=== PATIENT | male | born 1950 | race Caucasian/White ===

== ENCOUNTER 2024-11-15 18:22 | Inpatient (IN) | payer MEDICARE, OTHER, SELFPAY ==
[2024-11-15] VITALS (9 sets, daily range): BP systolic 146–172; BP diastolic 83–115; BMI 28.7; BMI 29.6
[2024-11-15 16:03] LABS: Hematocrit 43.2 % (39.0-52.0); Hemoglobin 14.7 g/dL (13.0-18.0); Mean Corp Hgb Conc. 34.0 g/dL (33.0-37.0); Mean Corpuscular Volume 90.9 fL (80.0-94.0); Nucleated Red Blood Cells % 0 % (-); Platelet Count 169 10^3/uL (130-400); Red Cell Dist. Width 12.8 % (11.5-14.5)
[2024-11-15 16:19] LABS: ALT (SGPT) 24 U/L (0-50); AST (SGOT) 29 U/L (17-59); Albumin 4.8 g/dl (3.5-5.0); Alkaline Phosphatase 47 U/L (38-126); Blood Urea Nitrogen 21 mg/dl (9-20); Calcium 9.6 mg/dl (8.4-10.2); Carbon Dioxide 29 mmol/L (22-30); Chloride 106 mmol/L (98-107); Glucose 97 mg/dl (70-99); Potassium 4.2 mmol/L (3.5-5.1); Sodium 143 mmol/L (135-145); Total Protein 7.8 g/dl (6.3-8.2); eGFR > 60.00
--- NOTE | 2024-11-15 16:39 | ED.GENMED ---
History of Present Illness
General
Chief Complaint: Chest Pain
Source: patient
Exam Limitations: none
Time Seen by Provider: 11/15/24 16:13
History of Present Illness
History of Present Illness:
74-year-old male presents with rapid heartbeat some lightheadedness fatigue weakness. Started earlier today. Noted on his Apple Watch. Also had a relatively recent episode of dizziness. Seen by ENT with the some concern for a stroke. MRIs are
pending. Patient does not feel the rapid heartbeat.
Past History
Past History
ED Past Medical History: HTN, Hypercholesterolemia and Other (Prostatic hypertrophy)
ED Past Surgical History: Orthopedic and Tonsilectomy
Review of Systems
Review of Systems
All Other Systems: Not applicable
Respiratory: Denies trouble breathing
Cardiac: Reports chest pain (Some chest tightness with this)
Phy Exam
Physical Exam
Physical Exam:
GENERAL: Alert and oriented in no apparent distress
EYE: Orbits normal.
NECK: Supple, no thyroid palpable
ENT: Pharynx without erythema
CARDIAC: Tachycardic and regular no murmur
LUNGS: Clear breath sounds,normal
ABDOMEN: Soft, without focal tenderness or distention
NEUROLOGICAL: Alert and oriented , grossly non-focal
SKIN: Warm and dry, no rash or lesion, no discoloration, skin intact.
MUSCULOSKELETAL: No edema,no deformity.Good color
PSYCH: Normal and appropriate interaction.
Scores
Heart Score for Chest Pain Patients
STEMI patient?: Not applicable
Course
Orders/Labs/Results
Orders:
Orders
11/15/24 Breakfast
Cholesterol Lowering
At Your Request: Full Participation
Cholesterol Lowering: Sodium, 2 Gram
11/15/24 15:28
Electrocardiogram (*1) Urgent
Reason for Study: Chest Pain
EKG- Treatment ONCE
11/15/24 15:52
Complete Blood Count/With Diff Urgent
Comprehensive Metabolic Panel Urgent
TSH Reflex To Free T4 Urgent
11/15/24 16:35
CT Head W/o Iv Contrast Urgent
Comment:
Reason For Exam: Recent dizziness/atrial flutter
Cardiac Monitoring- Treatment ONCE
IV Insert/Care/Rem.- Treatment PRN
11/15/24 17:04
PTT Urgent
Prothrombin Time Urgent
Troponin I Urgent
11/15/24 17:41
Heparin 4,000 units IV NOW STA
Nursing to Place Non Medication Order As Directed
Physician Order: PTT 6 hours after initial start of Heparin infusion
Above order entered?: Yes
11/15/24 17:45
Heparin 22635 Units/250 ml 25,000 units in 250 ml IV PER PROTOCOL
Weight to be used for heparin protocol in kilograms (kg):: 95.8
Protocol:: Cardiac Tx/Acute Coronary
PTT Goal Range to be used:: PTT 73 to 111 seconds
Order type:: Initial
INITIAL Infusion Dose (UNITS/KG/hr) & then follow protocol:: 12 units/kg/hr
Infusion Dose in UNITS/hr & then follow protocol (UNITS/hr):: 1,000
INFUSION RATE in mL/hr & then follow protocol (mL/hr):: 10
PTT less than or equal to 64 seconds:: Increase rate by 200 units/hr (+ 2 mL/hr)
PTT 64.1 to 72.9 seconds:: Increase rate by 100 units/hr (+ 1 mL/hr)
PTT 73 to 111 seconds:: Target Range. No change in rate.
PTT 111.1 to 130.9 seconds:: Decrease rate by 100 units/hr (- 1 mL/hr)
PTT 131 to 199.9 seconds:: HOLD for 1 hr. Then decrease rate by 200 units/hr (- 2 mL/hr)
PTT greater than or equal to 200 seconds:: HOLD for 2 hrs & Notify Provider. Then decrease by 200 units/hr (-
2 mL/hr)
Lab follow-up:: Each change, PTT q6h until 2 consecutive are therapeutic. Then PTT
daily.
11/15/24 17:58
Admit/Transfer Patient As Directed
Co-Sign Provider:
Level of Care: Inpatient admission
Assign to:: Telemetry
Physician / Group: duc drake
Diagnosis: atrial flutter
Reason for Telemetry: Arrhythmia
Date to Stop Telemetry: 11/18/24
Time to Stop Telemetry: 11:00
Reason for Hospitalization: atrial flutter
Expected length of stay greater than two midnights?: Yes
ELOS- Estimated Length of Stay in days: 3
I certify the patient meets the requirements for IP care: Yes
PRN Pain Medication Management As Directed
May give lesser potent ordered pain med per pt: Yes
preference::
Protocol:: Medication orders for pain may be administered in a
manner that supports deferring to patient preference
when the pt is:
- Requesting an ordered lesser potent pain medication.
Least to most potent pain medications are defined
as: acetaminophen < NSAID < tramadol < opioids
(morphine, oxycodone, hydromorphone).
- Requesting a lesser dose of the same medication IF
ORDERED.
- Requesting a less intrusive route of administration
if both routes are prescribed by the provider (PO <
IV).
11/15/24 17:59
Code Status As Directed
Resuscitation Status: Full Code
11/15/24 19:57
Acetaminophen [Tylenol] 650 mg PO Q4HPRN PRN
Bisacodyl [Dulcolax] 10 mg RECTAL [id number] PRN
Docusate W/Senna [Senokot-S] 1 tablet PO BIDPRN PRN
Polyethylene Glycol Powder [Miralax] 17 grams PO DAILYPRN PRN
11/15/24 19:57
Echo 2D MMode Color/Doppler Routine
Reason for Study: palpitation
CARDIOLOGY CONSULT Routine
Consulting Provider: Corey Ron
Was physician already notified: Yes
Heparin Protocol- PTT Orders As Directed
PTT per Heparin protocol: -Obtain CBC and baseline PTT - if not already collected.
-Obtain PTT 6 hours from start of infusion. Then, every 6 hours until 2 consecutive
PTT's are therapeutic. Then, PTT Daily.
-With each rate change, obtain PTT every 6 hours until 2 consecutive PTT's are
therapeutic. Then, PTT Daily.
Activity As Directed
Activity Level: As Tolerated
Notify MD As Directed
Notify physician if: PTT is greater than or equal to 200.
Vital Signs As Directed
Frequency: Per unit guidelines
11/16/24 06:00
Cardiovascular Evaluation IN AM
11/16/24 08:00
Atorvastatin [Lipitor] 10 mg PO DAILY
Losartan [Cozaar] 25 mg PO DAILY
Tamsulosin [Flomax] 0.4 mg PO DAILY
11/17/24 06:00
Complete Blood Count/No Diff Q2D
Comment: notify provider: Platelet count < 130,000 or decrease by 50% from baseline
11/18/24 11:00
DC Protocol for Telemetry ONCE
11/19/24 06:00
Complete Blood Count/No Diff Q2D
Comment: notify provider: Platelet count < 130,000 or decrease by 50% from baseline
11/21/24 06:00
Complete Blood Count/No Diff Q2D
Comment: notify provider: Platelet count < 130,000 or decrease by 50% from baseline
11/23/24 06:00
Complete Blood Count/No Diff Q2D
Comment: notify provider: Platelet count < 130,000 or decrease by 50% from baseline
11/25/24 06:00
Complete Blood Count/No Diff Q2D
Comment: notify provider: Platelet count < 130,000 or decrease by 50% from baseline
11/27/24 06:00
Complete Blood Count/No Diff Q2D
Comment: notify provider: Platelet count < 130,000 or decrease by 50% from baseline
11/29/24 06:00
Complete Blood Count/No Diff Q2D
Comment: notify provider: Platelet count < 130,000 or decrease by 50% from baseline
12/01/24 06:00
Complete Blood Count/No Diff Q2D
Comment: notify provider: Platelet count < 130,000 or decrease by 50% from baseline
Abnormal Lab Results
11/15/24
15:52
MPV 10.9 H fL
(7.4-10.4)
BUN 21 H mg/dl
(9-20)
11/15/24 15:52
11/15/24 15:52
Vital Signs
Initial and Last Documented VS:
Initial Vital Signs
Temp Pulse Resp BP Pulse Ox
98.0 F 144 20 161/115 98
11/15/24 15:32 11/15/24 15:32 11/15/24 15:32 11/15/24 15:32 11/15/24 15:32
Last Documented Vital Signs
Temp Pulse Resp BP Pulse Ox
97.6 F 79 20 146/93 96
11/15/24 19:47 11/15/24 21:04 11/15/24 19:47 11/15/24 21:04 11/15/24 19:47
MDM/Problems Addressed
Differential Diagnosis Includes:
All that is likely this started earlier today. Patient does not feel the tachycardic rhythm. He may have had previous episodes. I am also concerned that possibly his previous dizzy episode was a CVA. Very reluctant to cardiovert. In addition
while I was in the room his heart rate went down to the 70s 80s and 90s remaining in atrial flutter. Seems to have been a flutter with a variable rate
*Radiology
Radiology exam reviewed: radiology read reviewed (Negative head CT)
*Pulse Oximetry
SaO2: 97
Oxygen Mode of Delivery: Room air
Patient hypoxic: no
*EKG
Interpreted by ED Provider?: Yes
Interpretation: abnormal
Comparison EKG: no comparison EKG present
Heart Rate: 137
Rate: tachycardiac
Rhythm: atrial flutter
[place]: normal axis
Interval: normal interval
QRS Pattern: normal QRS
Ischemia: non-specific ST changes
*Merchandise Flow Team Member Interpretation
Rate: tachycardiac
Interpretation: abnormal
Heart Rate: 145
Rhythm: sinus
*Critical Care Note
Total Time (30-74mins, 75-104mins- exclusive of procedures): Not Applicable
Update Note
Update Note:
Patient with a flutter with episodes of RVR. Some concern for a recent episode of dizziness that ENT was concerned could have been a CVA. Feel this warrants inpatient workup.
ED Attending Note
-
Portions of this chart may have been created with voice recognition software.� Occasional wrong word or��sound alike� substitutions may have occurred due to the inherent limitations of voice recognition software.
Discharge Plan
Departure
Patient Disposition: Admit
Date of Disposition: 11/15/24
Time of Disposition: 17:42
Presentation/result/management discussed w/ accepting MD/DO: Hospitalist
Discharge Problem:
Atrial flutter/intermittent RVR, Recent disequilibrium
Interventions
Interventions:
*Risk Screen - Suicide Last Done: 11/15/24 15:32
*General Assessment Last Done: 11/15/24 15:32
*Neglect/Abuse Screening Last Done: 11/15/24 15:32
*ED- Fall Risk Assessment Last Done: 11/15/24 19:44
*ED COVID-19 Vaccine History Last Done: 11/15/24 19:44
*Nursing Disposition Last Done: 11/15/24 19:44
ED- Cardiac Assessment Last Done: 11/15/24 16:39
Discharge Date and Time
Discharge Date/Time: 11/15/24 19:45
[2024-11-15 17:24] LABS: APTT 27.6 Sec (23.4-35.0); INR 1.03; PT 13.8 Sec (11.4-14.6)
[2024-11-15 17:37] LABS: Troponin I 0.019 ng/ml
--- NOTE | 2024-11-15 17:45 | HPS.HSE ---
Family Physician
-
Family Physician:
Chief Complaint
-
tachycardia
History of Present Illness
74-year-old male with PMH for HTn, HLD, BPH presents with rapid heartbeat and some lightheadedness today. his HR was between 145-167 on his apple watch. he was evaluated at Urgent care. he was noted in atrial flutter. He complained of some chest
heaviness and short of breath. Patient denies any headache, dizziness or syncope. Patient denied any fever, chills, cough, congestion. Patient denies any abdominal pain, nausea, vomiting or diarrhea. Patient denies dysuria.
He was noted in a flutter. Heparin ordered in the ER. Admitted for further management
Medical History
Past Medical History
Past Medical History: Reports Other
Additional Past Medical History:
Hypertension, hyperlipidemia, BPH
Past Surgical History: Reports Other
Additional Past Surgical History:
Tonsillectomy, wisdom tooth extraction, amputation of the little finger
Social History
Tobacco: Non-smoker
Alcohol: None
Drug: None
Family History
Family History: Not pertinent
Allergies / Home Medications
Allergies reflects when Allergies were last updated in [facility].
Home Medications with original date entered in [facility]
Allergy/Medication List:
Allergies
Allergy/AdvReac Type Severity Reaction Status Date / Time
No Known Allergies Allergy Verified 11/15/24 18:00
Home Medications
losartan 25 mg tablet 25 mg PO DAILY 11/15/24
simvastatin 20 mg tablet 20 mg PO DAILY 11/15/24
tamsulosin 0.4 mg capsule 0.4 mg PO DAILY 11/15/24
Review of Systems
-
Constitutional: Reports No Symptoms
EENT: Reports No Symptoms
Respiratory: Reports No Symptoms
Cardiac: Reports Chest Pain and Palpitations
Abdomen/GI: Reports No Symptoms
: Reports No Symptoms
Musculoskeletal: Reports No Symptoms
Skin: Reports No Symptoms
Neurological: Reports Other (Lightheaded)
Endocrine: Reports No Symptoms
Hematologic/Lymphatic: Reports No Symptoms
Psych: Reports No Symptoms
Physical Exam
Vital Signs
Vital Signs
Temp Pulse Resp BP Pulse Ox
98.0 F 91 16 172/110 97
11/15/24 15:32 11/15/24 17:00 11/15/24 17:00 11/15/24 16:31 11/15/24 16:41
Physical Exam
General: Well Developed, Well Nourished and No Apparent Distress
HEENT: NormoCephalic, Moist mucous membranes and Atraumatic
Respiratory: Clear
Cardiac: S1/S2 and Regular Rhythm; No Murmur or Rub
GI: Soft, Non Tender, Non Distended and Normal Bowel Sounds; No Organomegaly
Rectal: Deferred by Provider
Musculoskeletal: No Clubbing, No Cyanosis and No Edema
Skin: No Rash
Neuro: AO x 3 and Nonfocal/grossly intact
Psych: Calm
Laboratory Results
-
11/15/24 15:52
11/15/24 15:52
Laboratory Results
PT 13.8 Sec (11.4-14.6) 11/15/24 17:04
INR 1.03 11/15/24 17:04
APTT 27.6 Sec (23.4-35.0) 11/15/24 17:04
Total Bilirubin 0.5 mg/dl (0.2-1.3) 11/15/24 15:52
AST 29 U/L (17-59) 11/15/24 15:52
ALT 24 U/L (0-50) 11/15/24 15:52
Alkaline Phosphatase 47 U/L (38-126) 11/15/24 15:52
Troponin I 0.019 ng/ml 11/15/24 17:04
Data Reviewed
-
Lab Data: Labs Reviewed by me
Impression/Plan
-
# New onset a flutter
- EKG with A-flutter with 2:1 AV conduction, nonspecific ST and T wave abnormality
- at presented normal sinus rhythm with controlled heart rate
- IV heparin
- Obtain echocardiogram
- Cardiology consulted
# Hypertension
- Losartan continued
#Hyperlipidemia
- Simvastatin continue
# BPH
-Tamsulosin continued
# DVT prophylaxis
-Heparin
# CODE STATUS
-Full code
--- NOTE | 2024-11-15 18:24 | W.PN.UPDATE ---
Update Note
Progress Note Update
This note serves as an addendum to the H&P by repair clerk SHRUTHI�
Roxane THEA�
HPI
74M HX HTN, HLD, BPH seen at ER
- pw h rapid heartbeat and some lightheadedness today.
- HR was between 145-167 on his apple watch.
- evaluated at Urgent care - noted in atrial flutter.
- complained of some chest heaviness and short of breath.
ROS
Patient denies any headache, dizziness or syncope.
Patient denied any fever, chills, cough, congestion.
Patient denies any abdominal pain, nausea, vomiting or diarrhea.
Patient denies dysuria.
He was noted in a flutter. Heparin ordered in the ER. Admitted for further management
PHX; see above
Relevant VS
Temp Pulse Resp BP Pulse Ox
98.0 F 91 16 172/110 97
11/15/24 15:32 11/15/24 17:00 11/15/24 17:00 11/15/24 16:31 11/15/24 16:41
PE
General: Well Developed, Well Nourished and No Apparent Distress
HEENT: NormoCephalic, Moist mucous membranes and Atraumatic
Respiratory: Clear
Cardiac: S1/S2 and Regular Rhythm; No Murmur or Rub
GI: Soft, Non Tender, Non Distended and Normal Bowel Sounds; No Organomegaly
Rectal: Deferred by Provider
Musculoskeletal: No Clubbing, No Cyanosis and No Edema
Skin: No Rash
Neuro: AO x 3 and Nonfocal/grossly intact
Psych: Calm
Relevant Data
11/15/24 11/15/24
15:52 17:04
Hgb 14.7
INR 1.03
BUN 21 H
Creatinine 1.2
eGFR > 60.00
Troponin I 0.019
TSH (Reflex) 2.90
CT Head W/o Iv Contrast
- No acute intracranial abnormality.
ASSESSMENT & PLAN
New onset a flutter
- EKG with A-flutter with 2:1 AV conduction, nonspecific ST and T wave abnormality
- currently in NSR , controlled heart rate
- Heaprin gtt
- Obtain TTE in AM
- CBC Cardiology consulted
Bn Hypertension
- Losartan continued
Hyperlipidemia
- Simvastatin continue
BPH
-Tamsulosin continued
DVT Px: on Heparin gtt
Code: Full
IP TLM
[2024-11-15] MEDS: HEPARIN 25000 UNITS/250 ML IV (18:46)
[2024-11-15] MEDS: HEPARIN 4000 UNITS IV (18:46)
[2024-11-15] MEDS: LOPRESSOR 5 MG IV (20:10)
--- NOTE | 2024-11-15 21:00 | PTCARENOTE ---
Addendum entered by Rosanne Herrera RN 11/16/24 04:04:
2200: HR decreased into the 90s-80s.
2250: tele shows afib with a break into a irregular SR.
2300: EKG confirms Sinus arrhythmia with rate in the 60s.
Original Note:
Pt transferred from ED. Ambulated to bed with stand by. Heparin gtt in place at reported rate (see worklist). pt was placed on tele. Rhythm assessed : A flutter HR 150s. Provider was contacted for PRN. Lopressor administered. 2nd IV placed. Family
at bedside updated on plan of care. Son and informed of current status and plan of care over the phone with permission from pt.
[2024-11-16 01:16] LABS: APTT 61.3 Sec (23.4-35.0)
[2024-11-16 03:45] VITALS: BP 128/66
[2024-11-16 07:31] VITALS: BP 122/83
[2024-11-16 08:00] LABS: APTT 77.0 Sec (23.4-35.0)
[2024-11-16] MEDS: FLOMAX 0.4 MG PO (09:05)
[2024-11-16] MEDS: LIPITOR 10 MG PO (09:05)
[2024-11-16] MEDS: COZAAR 25 MG PO (09:05)
[2024-11-16 09:08] LABS: HDL Cholesterol 44 mg/dl; LDL Cholesterol, Calculated 83 mg/dl; Very Low Density Lipoprotein 14 mg/dl (0-30)
[2024-11-16 11:00] VITALS: BP 135/75
--- NOTE | 2024-11-16 12:13 | CM ---
Reviewed the chart notes and spoke with the patient at the bedside. The patient resides with his spouse in a [place] with a basement. There are no steps to enter. The patient reports no DME/VN/SNF in the past. [facility] CM continues to be available to patient/family and is monitoring medical plan for needs at discharge.
Plan: Discharge to home when medically stable. No needs anticipated at this time.
--- NOTE | 2024-11-16 12:30 | W.PN.HOSP.TC ---
Addendum entered and electronically signed by Maximus Orosco MD 11/17/24 15:19:
[id number]
Original Note:
Today's Communication/Plan
-
Eliquis
BB
ECHO outpt
Cards f/u
Assessment / Plan
Assessment / Plan
Physical Exam
General: Well Developed, Well Nourished and No Apparent Distress
HEENT: NormoCephalic, Moist mucous membranes and Atraumatic
Respiratory: Clear
Cardiac: S1/S2 and Regular Rhythm; No Murmur or Rub
GI: Soft, Non Tender, Non Distended and Normal Bowel Sounds; No Organomegaly
Rectal: Deferred by Provider
Musculoskeletal: No Clubbing, No Cyanosis and No Edema
Skin: No Rash
Neuro: AO x 3 and Nonfocal/grossly intact
Psych: Calm
# New onset a flutter
- EKG with A-flutter with 2:1 AV conduction, nonspecific ST and T wave abnormality
- Back in sinus
- IV heparin - dc and switch to eliquis BID
- Lopressor BID
-F/u echocardiogram outpt
- Cardiology consulted - f/u outpt
# Hypertension
- Losartan continued
#Hyperlipidemia
- Simvastatin continue
# BPH
-Tamsulosin continued
# DVT prophylaxis
-Eliquis
# CODE STATUS
-Full code
More than 30 minutes spent in discharge including
Final examination of the patient
Summarizing hospital stay
Instructions for continuing care to all relevant caregivers
Preparation of discharge records, prescriptions, and referral forms
Total time spent (in minutes): 36
Anticipated Discharge: Today
Subjective/Interval History
-
Date of Service: November 16, 2024
Back in sinus rhythm
Objective Data
-
Labs:
Laboratory Results
11/16/24 11/16/24 11/16/24
00:51 07:32 13:30
APTT 61.3 H 77.0 H Pending
Vital Signs:
Vital Signs
Temp Pulse Resp BP Pulse Ox
97.5 F 61 16 135/75 94
11/16/24 11:00 11/16/24 11:00 11/16/24 11:00 11/16/24 11:00 11/16/24 11:00
Review of Systems
-
History Source: Patient
All other systems: Not reviewed unless documented
Data Reviewed
-
CT Scan: Report Reviewed by me
Labs: Labs Reviewed by me
--- NOTE | 2024-11-16 12:33 | W.DS.TRANS ---
DC Summary - Divorce Attorney
-
Discharge Instructions:
Discharge Diagnosis/Procedures New onset a flutter
Diet Low Cholesterol,Low Fat
Activity As tolerated
Blood Work cbc and cmp in 1 week
Instructions:
Stand-Alone Forms:
Changes to Home Medications: Yes
Discharge Medications:
DC Medications w/original date entered in [employer]
losartan 25 mg tablet 25 mg PO DAILY Blood Pressure 11/15/24
simvastatin 20 mg tablet 20 mg PO DAILY High Cholesterol 11/15/24
tamsulosin 0.4 mg capsule 0.4 mg PO DAILY Urinary Issue 11/15/24
apixaban 5 mg tablet (Eliquis) 5 mg PO BID 30 days #60 tabs 11/16/24
metoprolol tartrate 25 mg tablet 12.5 mg (1/2 x 25 mg) PO BID 30 days #30 tabs 11/16/24
Home Medication Changes
apixaban 5 mg tablet (Eliquis) 5 mg PO BID 30 days #60 tabs 11/16/24
metoprolol tartrate 25 mg tablet 12.5 mg (1/2 x 25 mg) PO BID 30 days #30 tabs 11/16/24
Pending Results: No
[2024-11-16] MEDS: ELIQUIS 5 MG PO (13:34)
[2024-11-16 14:06] VITALS: BP 122/70; PULSE 56; O2SAT 94
--- NOTE | 2024-11-16 14:14 | PTOTSP ---
patient presents at an I level of functional mobility today. patient was able to walk 200 ft with an AD without change in symptoms. Chart notes that patient is being worked up on an OP basis for lightheadedness via imaging. patient at this time
is I with all functional mobility and there will be no skilled needs while in house or upon returning home. Will sign off.
[2024-11-16 14:40] VITALS: BP 122/70; PULSE 56
[2024-11-16 15:32] VITALS: BP 134/66
--- NOTE | 2024-11-16 16:44 | CON.CAR ---
Consultation
Consultation Request
Date/Time Consultation Requested: 11/15/24
Date/Time Consultation Performed: 11/16/24
Requesting Provider: Brian
Performing Provider: Obi
Reason for Consultation: Atrial flutter RVR
Medical History
-
Chief Complaint: elevated HR
History of Present Illness:
Patient tells me he was working at the gym yesterday and noted his heart to be elevated. Seems to be asymptomatic without chest discomfort dyspnea or palpitations by his report. He then proceeded to drive to [facility] for '[employer] [place]'
when he noted his heart rate was still elevated into the 160s to 170s. Tells me he did not think much of this but called his who urged him to seek urgent medical evaluation. Initially evaluated in urgent care and was told that he was in atrial
flutter. Was subsequently referred to ER. Does tell me at this point he was experiencing chest tightness/discomfort. Was started on IV heparin and given IV metoprolol. Monitor on telemetry overnight and atrial flutter broke around 11 PM on
11/15/2024. Around the time of his conversion telemetry appears to show atrial fibrillation briefly.
Past Medical History
Past Medical History: HTN and Hypercholesterolemia
Past Surgical History: Tonsilectomy
Social History
Tobacco: Non-Smoker
Personal:
Living: With Family
Family History
Family History: Early CAD (Brother of an [place] in his 40s)
Allergies / Home Medications
Allergy/AdvReac Type Severity Reaction Status Date / Time
No Known Allergies Allergy Verified 11/15/24 18:00
�Medication �Instructions �Recorded �Confirmed �Type
losartan 25 mg tablet 25 mg PO DAILY Blood Pressure 11/15/24 11/15/24 History
simvastatin 20 mg tablet 20 mg PO DAILY High Cholesterol 11/15/24 11/15/24 History
tamsulosin 0.4 mg capsule 0.4 mg PO DAILY Urinary Issue 11/15/24 11/15/24 History
apixaban 5 mg tablet (Eliquis) 5 mg PO BID 30 days #60 tabs 11/16/24 Rx
metoprolol tartrate 25 mg tablet 12.5 mg (1/2 x 25 mg) PO BID 30 11/16/24 Rx
days #30 tabs
Review of Systems
-
History Source: Patient
All other systems: Negative unless noted
Physical Exam
Vital Signs
Temp Pulse Resp BP Pulse Ox
97.6 F 68 18 134/66 94
11/16/24 15:32 11/16/24 15:32 11/16/24 15:32 11/16/24 15:32 11/16/24 15:32
Lab Results
11/15/24 15:52
11/15/24 15:52
Troponin I 0.019 ng/ml 11/15/24 17:04
Physical Exam
General: Well Developed
HEENT: Normocephalic
Respiratory: Clear and Non Labored Respirations
Cardiac: S1/S2
GI: Soft
Musculoskeletal: No Edema
Skin: Warm and Dry
Neuro: AO x 3
Psych: Calm
Impression / Plan
-
Aerospace Quality Engineer: None prior to admission
Assessment:
Atrial flutter with rapid ventricular response
Possible atrial fibrillation
Hypertension
Hyperlipidemia
Family history of premature CAD
Plan:
-Presented in rate rapid atrial flutter but converted to sinus rhythm around 11 PM 11/15/2024
-By review of telemetry there appears to be a short period of atrial fibrillation as well
-Start low-dose oral metoprolol for rate control
-Monitor for recurrence with Apple Watch
-Recommend discharging on Eliquis 5 mg twice daily for risk reduction of cardioembolic stroke� [id number] of 3 for age and hypertension
-Check echo as an outpatient
-Discussed ablation and he will consider this
Stable for discharge from my perspective. I have asked my office to arrange a follow-up appointment.
Data Reviewed
-
EKG: Tracing Personally Visualized and interpreted
CT Scan: Report Reviewed by me
Labs: Labs Reviewed by me
Old Records: Reviewed
== END 2024-11-16 16:28 | disposition home or self-care (01) | DRG 310 ==
LOC: 4 EAST ACU 18:22
PROVIDERS: Emergency Medicine; Registered Nurse; ADMITTING PHYSICIAN Internal Medicine; ATTENDING PHYSICIAN Internal Medicine; CONSULT PHYSICIAN Internal Medicine Cardiovascular Disease; EMERGENCY PHYSICIAN Emergency Medicine; FAMILY PHYSICIAN Internal Medicine
DX: I48.92 Unspecified atrial flutter (principal); E78.00 Pure hypercholesterolemia, unspecified; I10 Essential (primary) hypertension; N40.0 Benign prostatic hyperplasia without lower urinary tract symptoms; I48.91 Unspecified atrial fibrillation; Z79.899 Other long term (current) drug therapy; Z82.49 Family history of ischemic heart disease and other diseases of the circulatory system
CPT/HCPCS: 70450; 80053; 80061; 84443; 84484; 85025; 85610; 85730; 93005; 96365; 97161; 97165; 99285